=== PATIENT | female | born 1965 | race Two or more races ===

== ENCOUNTER 2019-11-05 11:00 | Emergency (ER) | payer MEDICAID, OTHER ==
[~2019-11-05] VITALS: Ht 157.5 cm; Wt 54.4 kg
[2019-11-05 11:09] VITALS: BP 141/51
== END 2019-11-05 14:05 | disposition home or self-care (01) ==
LOC: ER 11:00
DX: H66.91 Otitis media, unspecified, right ear (principal); Z86.19 Personal history of other infectious and parasitic diseases